=== PATIENT | female | born 1965 | race Caucasian/White ===

== ENCOUNTER → 2017-05-15 | Day surgery (SDC) | payer OTHER ==
[~2017-05-15] MED LIST: BUPIVACAINE/EPINEPHRINE 0.25% 50 ML VIAL ONE; LACTATED RINGER'S 1000 ML INJ 1,000 ML ONE; MIDAZOLAM HCL 2 MG/2 ML VIAL ONE; ONDANSETRON HCL 4 MG/2 ML VIAL IV PUSH ONE; PROPOFOL 200 MG/20 ML AMP IV ONE; TRIAMCINOLONE ACETONIDE 40 MG/ML VIAL ONE; ceFAZolin INJ 1,000 MG VIAL ONE
--- NOTE | 2017-05-16 09:43 | MP ---
cc: VINOD COBB DATE OF SURGERY 05/15/2017 PREOPERATIVE DIAGNOSIS Left knee medial and lateral meniscus tear. POSTOPERATIVE DIAGNOSES Left knee medial and lateral meniscus tear. PROCEDURE Left knee arthroscopic partial medial and lateral meniscectomy. SURGEON Dr. Vinod Cobb ANESTHESIA General ESTIMATED BLOOD LOSS Less than 10 cc TOURNIQUET TIME Zero minutes COMPLICATIONS None JUSTIFICATION This patient is a 52-year female with a chief complaint of left knee pain. She presents to the [facility]. Clinical exam as well as MRI confirmed in the above-named findings. The patient was counseled as to the risks, benefits and alternatives to the above-named proposed surgical procedure. She did wish to proceed with surgery. PROCEDURE IN DETAIL A written consent was obtained. The patient identified by name, taken to the operating room, placed supine on the operating room table and general anesthesia was administered as well as one gram of IV Ancef. The left thigh carefully placed in the well-padded leg robledo. The left lower extremity prepped and draped using Isopropyl alcohol, Hibiclens solution, and DuraPrep solution. After a time-out was performed, a standard medial and lateral parapatellar arthroscopic portal was established. 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 An arthroscopic shaver was introduced into the medial compartment to perform a partial medial meniscectomy. The meniscal rim was probed and noted to be stable. The shaver was also used to perform a gentle chondroplasty of the medial femoral condyle along the areas of unstable cartilage fragmentation. The intercondylar notch revealed the anterior and posterior cruciate ligaments to be intact. The lateral compartment revealed a midbody tear of the lateral meniscus extending into the anterior horn. The arthroscopic shaver was introduced into the lateral compartment to perform a partial lateral meniscectomy. The lateral compartment did reveal mild grade 2 chondromalacia of the lateral femoral condyle and lateral tibial plateau. At the conclusion of the surgical procedure, 30 cc of 0.5% Marcaine with epinephrine was injected into the knee joint. The arthroscope portals were closed with 3-0 Prolene sutures. Sterile dressings were applied. The patient tolerated the procedure well with no intraoperative complications noted. MD MONIQUE Woods/JENNIFER /5:22 PM /9:32 AM
== END | disposition home or self-care (01) ==
LOC: ESDC 15:03
PROVIDERS: ATTEND Orthopaedic Surgery Sports Medicine
DX: S83.242A Other tear of medial meniscus, current injury, left knee, initial encounter (principal); S83.282A Other tear of lateral meniscus, current injury, left knee, initial encounter
CPT/HCPCS: 01400; 29880; J0690; J2250; J2405; J3010; J3301; J7120